=== PATIENT | female | born 1970 | race Caucasian/White ===

== ENCOUNTER 2021-07-03 08:33 | Day surgery (SDC) | payer OTHER ==
[2021-06-30 11:24] VITALS: BMI 22.6
[~2021-07-03 08:33] MED LIST: LACTATED RINGERS 1,000 ML IV SCH; LIDOCAINE 1% (10MG/ML) FOR IV START INTRADERMA PRN
[2021-07-03 09:01] VITALS: TEMP 97.6
[2021-07-03] MEDS ORDERED: LIDOCAINE 1% INJ 10MG/ML (20 ML MDV) ONE (10:11)
[2021-07-03] MEDS ORDERED: PROPOFOL 10 MG/ML 20 ML VIAL IV ONE (10:11)
--- NOTE | 2021-07-03 10:27 | P.HPIHPCON ---
History of Present Illness H&P Date: 07/03/21 Patient presents today for screening colonoscopy. She has never had a colonoscopy. Denies blood in her stool. Denies family history of colon cancer or inflammatory bowel disease. Consent for Procedure: I have explained the operation/procedure to the patient, including the risks, benefits, side effects, alternative therapies (including not receiving the proposed treatment or service), the likelihood of the patient achieving his/her goals, and potential recuperation problems for the procedure/sedation/analgesia, as well as any blood products, if indicated. I also explained to the patient the risks, benefits and side effects of the alternatives, as well as the risks related to not receiving the proposed procedure, care, treatment, or services. - Review of Systems All systems: negative Past Medical History Past Medical History: No Reported History History of Any Multi-Drug Resistant Organisms: None Reported Past Surgical History: Tonsillectomy Additional Past Surgical History / Comment(s): Cataracts removed, precancerous skin lesion removed from shoulder. Past Anesthesia/Blood Transfusion Reactions: No Reported Reaction Past Psychological History: No Psychological Hx Reported Smoking Status: Current every day smoker Past Alcohol Use History: Occasional Additional Past Alcohol Use History / Comment(s): Has been smoking since 16 yrs old, quit for 7 yrs in her 30's then started again, 1 pack every 2 days. Past Drug Use History: None Reported - Past Family History Mother Family Medical History: No Reported History Medications and Allergies Home Medications Medication Instructions Recorded Confirmed Type No Known Home Medications 06/30/21 06/30/21 History Allergies Allergy/AdvReac Type Severity Reaction Status Date / Time No Known Allergies Allergy Verified 07/03/21 08:57 Surgical - Exam Osteopathic Statement: *. No significant issues noted on an osteopathic structural exam other than those noted in the History and Physical/Consult. Vital Signs Temp Pulse Resp BP Pulse Ox 97.6 F 72 16 145/60 97 07/03/21 08:59 07/03/21 08:59 07/03/21 08:59 07/03/21 08:59 07/03/21 08:59 - General no distress - Neck trachea midline - Respiratory normal respiratory effort - Abdomen Abdomen: soft, non tender Assessment and Plan Plan: Plan is for screening colonoscopy. Risks, benefits and alternatives were provided to the patient. Further recommendations after procedure.
--- NOTE | 2021-07-03 10:28 | P.PCN ---
Date of Procedure: 07/03/21 Preoperative Diagnosis: Screening Postoperative Diagnosis: Diverticulosis Procedure(s) Performed: Colonoscopy Anesthesia: MAC Surgeon: Flakito Loredo Pathology: none sent Condition: stable Disposition: same day Indications for Procedure: Patient presents today for screening colonoscopy. Risks, benefits and alternatives were provided to the patient. Operative Findings: Diverticulosis scattered throughout the colon Description of Procedure: The patient was brought to the endoscopy suite and placed in left lateral decubitus position and adequate sedation was achieved using conscious sedation. A digital rectal exam was performed and mild internal hemorrhoids were palpated. An endoscope was then placed in the rectum and advanced to the cecum was identified by landmarks including the appendiceal orifice and the ileocecal valve. The prep was good. The colonoscope was then slowly withdrawn, examining for any mucosal abnormalities. The cecum, ascending, transverse, descending and sigmoid colon were visualized adequately. There were no obvious neoplastic lesions noted throughout the colon. There were no obvious polyps noted throughout the colon. Significant amount of diverticulosis was noted scattered throughout the sigmoid colon. Retroflexion was performed in the rectum and internal hemorrhoids were visible. Excess air was removed, the colonoscope withdrawn and the procedure terminated. The patient was then transferred to the recovery unit in stable condition. Repeat colonoscopy should be performed in 10 years.
[2021-07-03 10:56] VITALS: BP 116/71; PULSE 72; RESP 16
== END 2021-07-03 11:13 | disposition home or self-care (01) ==
LOC: ORWHC2ENDO 08:33
PROVIDERS: ATTEND Surgery
DX: Z12.11 Encounter for screening for malignant neoplasm of colon (principal); K57.90 Diverticulosis of intestine, part unspecified, without perforation or abscess without bleeding
CPT/HCPCS: J2001; J2704; G0121

== ENCOUNTER → 2021-07-08 | Outpatient (CLI) | payer OTHER ==
--- NOTE | 2021-07-09 10:01 | MM ---
Reason for exam: screening (asymptomatic). Last mammogram was performed 9 years and 9 months ago. History: Patient is postmenopausal and history of other cancer. Family history of breast cancer in 2 maternal aunts at age 50. Physical Findings: A clinical breast exam by your physician is recommended on an annual basis and results should be correlated with mammographic findings. MG 3D Screening Mammo W/Cad Bilateral CC, MLO, and XCCL view(s) were taken. Prior study comparison: September 28, 2011, [facility] DIGITAL BILATERAL MAMMOGRAM w/CAD. September 24, 2011, bilateral digital screening mammo w/CAD. The breast tissue is heterogeneously dense. This may lower the sensitivity of mammography. Finding: There are indeterminate regional calcifications in the upper outer quadrant, posterior position of both breasts. New finding since September 28, 2011 and September 24, 2011. ASSESSMENT: Incomplete: need additional imaging evaluation, BI-RAD 0 RECOMMENDATION: Special view mammogram of both breasts. [facility] will attempt to contact patient to return for supplemental views.
== END | disposition home or self-care (01) ==
LOC: RADMAMWWP 12:58
PROVIDERS: ATTEND Family Medicine
DX: Z12.31 Encounter for screening mammogram for malignant neoplasm of breast (principal); Z80.3 Family history of malignant neoplasm of breast; Z78.0 Asymptomatic menopausal state
CPT/HCPCS: 77063; 77067

== ENCOUNTER → 2021-07-15 | Outpatient (CLI) | payer OTHER ==
--- NOTE | 2021-07-15 13:26 | MM ---
Reason for exam: additional evaluation requested from abnormal screening. Last mammogram was performed less than 1 month ago. History: Patient is postmenopausal and history of other cancer. Family history of breast cancer in 2 maternal aunts at age 50. Physical Findings: Nurse did not find any significant physical abnormalities on exam. MG Work Up Mamm w CAD BILAT Bilateral CC with magnification, LM with magnification, and LM view(s) were taken. Prior study comparison: July 08, 2021, bilateral MG 3d screening mammo w/cad. September 28, 2011, [facility] DIGITAL BILATERAL MAMMOGRAM w/CAD. The breast tissue is heterogeneously dense. This may lower the sensitivity of mammography. Bilateral indeterminate groups of microcalcifications. These results were verbally communicated with the patient and result sheet given to the patient on 07/15/21. ASSESSMENT: Suspicious, BI-RAD 4 RECOMMENDATION: Stereotactic core biopsy of both breasts. Called Dr. Yo' office with mammographic findings and has scheduled an appointment for the patient for 08/26/21 at 4:[address] Eng. Biopsy scheduled for 08/17/21 at 10:30. PRELIMINARY REPORT CALLED AND FAXED TO DR. ENG ON 07/15/21.
== END | disposition home or self-care (01) ==
LOC: RADMAMWWP 07:33
PROVIDERS: ATTEND Family Medicine
DX: R92.8 Other abnormal and inconclusive findings on diagnostic imaging of breast (principal); Z78.0 Asymptomatic menopausal state; Z80.3 Family history of malignant neoplasm of breast
CPT/HCPCS: 77066

== ENCOUNTER → 2021-08-17 | Day surgery (SDC) | payer OTHER ==
[2021-08-17 07:22] VITALS: RESP 16; TEMP 98.1
[2021-08-17 09:58] VITALS: BP 126/85; PULSE 76
--- NOTE | 2021-08-18 09:12 | MM ---
EXAMINATION TYPE: MG stereo VAD BX RT DATE OF EXAM: 08/17/2021 COMPARISON: 07/15/2021 CLINICAL HISTORY: Abnormal mammogram TECHNIQUE: Stereotactic guided core biopsy of the bilateral breasts. FINDINGS: The procedure of stereotactic guided core biopsy was explained to the patient. Benefits, a lternatives, and risks were discussed. An informed consent was then obtained. A timeout was performed. Right breast calcifications localized. 7 core samples were obtained. A marker was placed at the biops y site. Hemostasis was obtained with direct pressure. Specimen: Right breast specimen contains multiple calcifications. Left breast calcifications were localized. 5 core samples were obtained. Marker was placed biopsy sit e. Hemostasis was obtained with direct pressure. Specimen: Left breast specimen contains multiple calcifications. Post procedure Mammogram: Postprocedure mammogram obtained. Core markers in the expected calcificatio ns Discharge instructions were discussed with patient. Patient was released in stable position having to lerated the procedure well. IMPRESSION: 1. Successful stereotactic core biopsy right breast. 2. Successful stereotactic core biopsy left breast. Recommendations: 1. Recommendation are pending pathology results.
== END | disposition home or self-care (01) ==
LOC: RADMAMWWP 07:00
PROVIDERS: ATTEND Surgery
DX: N60.11 Diffuse cystic mastopathy of right breast (principal); N60.12 Diffuse cystic mastopathy of left breast; R92.1 Mammographic calcification found on diagnostic imaging of breast
CPT/HCPCS: 88305; 19081 ×2; A4648; J2001

== ENCOUNTER → 2022-09-30 | Outpatient (CLI) | payer BC ==
--- NOTE | 2022-09-30 11:27 | MM ---
Reason for Exam: Follow-up at short interval from prior study. Last screening mammogram was performed 6 month(s) ago. Patient History: Menarche at age 10. First Full-Term at age 19. Postmenopausal. Patient has history of breast feeding. 08/17/2021, Benign Core Biopsy on the left side. 08/17/2021, Benign Core Biopsy on the right side. Maternal aunt had breast cancer, age 50. Maternal aunt had breast cancer, age 50. Risk Values: Corrie 5 year model risk: 1.5%. NCI Lifetime model risk: 11.1%. Prior Study Comparison: 07/08/2021 Bilateral Screening Mammogram, [facility]. 07/15/2021 Bilateral Diagnostic Mammogram, [facility]. 03/31/2022 Bilateral MG 3D diag mammo w/cad ITA, [facility]. Tissue Density: Left: The breast tissue is heterogeneously dense. This may lower the sensitivity of mammography. Findings: Analyzed By CAD. Pattern appears stable. A core markers within the upper outer aspect left breast near a focal asymmetry was scattered calcifications. No significant interval change is evident. No suspicious groups of microcalcifications, spiculated or lobular masses, architectural distortion or other secondary signs of malignancy are mammographically apparent. Overall Assessment: Benign, BI-RAD 2 Management: Screening Mammogram of both breasts in 6 months. A negative mammogram report should not preclude additional follow up of suspicious palpable abnormalities. Patient should continue monthly self breast exam. A clinical breast exam by your physician is recommended on an annual basis and results should be correlated with mammographic findings. Electronically signed and approved by: Tu Devries D.O. Radiologis
== END | disposition home or self-care (01) ==
LOC: RADMAMWWP 10:42
PROVIDERS: ATTEND Surgery
DX: R92.8 Other abnormal and inconclusive findings on diagnostic imaging of breast (principal); Z78.0 Asymptomatic menopausal state; Z80.3 Family history of malignant neoplasm of breast
CPT/HCPCS: 77061; 77065

== ENCOUNTER → 2023-11-09 | Outpatient (CLI) | payer BC ==
--- NOTE | 2023-11-10 11:17 | MM ---
Reason for Exam: Screening (asymptomatic). Last mammogram was performed 1 year(s) and 7 month(s) ago. Indicated Problems: Other indicated problem of the right side for 6 Month(s) : nipple itchiness. Patient History: Menarche at age 10. First Full-Term at age 19. Postmenopausal. Patient has history of breast feeding. 08/17/2021, Benign Core Biopsy on the left side. 08/17/2021, Benign Core Biopsy on the right side. Maternal aunt had breast cancer, age 50. Maternal aunt had breast cancer, age 50. Risk Values: Corrie 5 year model risk: 1.6%. NCI Lifetime model risk: 10.9%. Prior Study Comparison: 07/15/2021 Bilateral Diagnostic Mammogram, [facility]. 03/31/2022 Bilateral MG 3D diag mammo w/cad ITA, [facility]. 09/30/2022 Left MG 3D diag mammo w/cad LT, [facility]. Tissue Density: The breasts are heterogeneously dense, which may obscure small masses. Findings: Analyzed By CAD. Bilateral breast biopsy clips. Right breast: There is no suspicious group of microcalcifications or new suspicious mass. Left breast: There is no suspicious group of microcalcifications or new suspicious mass. Overall Assessment: Benign, BI-RAD 2 Management: Screening Mammogram of both breasts in [address] [facility] will attempt to contact patient to return for supplemental views and ultrasound if indicated. Patient should continue monthly self-breast exams. A clinical breast exam by your physician is recommended on an annual basis. This exam should not preclude additional follow-up of suspicious palpable abnormalities. Note on Corrie scores and lifetime risk: 1. A Corrie score greater than 3% is considered moderate risk. If this is the case, consider specialist referral to assess eligibility for a risk reducing agent. 2. If overall lifetime risk for the development of breast cancer is 20% or higher, the patient may qualify for future screening with alternating mammogram and breast MRI. Electronically signed and approved by: Keaton Morales DO
== END | disposition home or self-care (01) ==
LOC: RADMAMWWP 09:01
PROVIDERS: ATTEND Family Medicine
DX: Z12.31 Encounter for screening mammogram for malignant neoplasm of breast (principal); Z78.0 Asymptomatic menopausal state; Z80.3 Family history of malignant neoplasm of breast
CPT/HCPCS: 77067